=== PATIENT | male | born 1960 | race Caucasian/White ===

== ENCOUNTER 2023-01-04 07:41 | Day surgery (SDC) | payer MEDICAID ==
[~2023-01-04] VITALS: Ht 177.8 cm; Wt 88.5 kg
[2023-01-04] MEDS ORDERED: METOCLOPRAMIDE HCL 10 MG/2 ML VIAL IVP PRN (11:30)
[2023-01-04] MEDS ORDERED: MORPHINE 4 MG INJ. 4 MG/ML VIAL IVP PRN ×3 (11:30)
[2023-01-04] MEDS ORDERED: ONDANSETRON HCL 4 MG/2 ML VIAL IVP PRN (11:30)
[2023-01-04] MEDS ORDERED: GLYCOPYRROLATE 0.2 MG/ML VIAL ONE (12:57)
[2023-01-04] MEDS ORDERED: PROPOFOL 200MG/ 20ML VIAL (DIPRIVAN) IV ONE (12:57)
[2023-01-04] MEDS ORDERED: MINERAL OIL/PETROLATUM,WHITE 3.5 GM EYE OINT. OP ONE (12:57)
[2023-01-04] MEDS ORDERED: DEXAMETHASONE SOD PHOSPHATE 4 MG/ML VIAL ONE (12:57)
[2023-01-04] MEDS ORDERED: fentaNYL CITRATE/PF 100 MCG/2 ML AMP ONE (12:57)
[2023-01-04] MEDS ORDERED: NS IRRIG SOLN 1000 ML IR ONE (12:57)
[2023-01-04] MEDS ORDERED: MIDAZOLAM HCL 5 MG/ML VIAL (VERSED) IV ONE (12:57)
[2023-01-04] MEDS ORDERED: ROCURONIUM BROMIDE 10 MG/ML (ZEMURON) ONE (12:57)
[2023-01-04] MEDS ORDERED: LIDOCAINE 1% 10 MG/ML, 20 ML MDV ONE (12:57)
[2023-01-04] MEDS ORDERED: LIDOCAINE/EPI 1% 1:100000 20 ML VIAL ONE (12:57)
[2023-01-04] MEDS ORDERED: SEVOFLURANE 15 MIN GAS INH ONE (12:57)
[2023-01-04] MEDS ORDERED: OXYMETAZOLINE HCL 0.05% NASAL SPRAY NS ONE (12:57)
[2023-01-04] MEDS ORDERED: LR 1,000 ML IV.SOLN IV ONE (12:57)
[2023-01-04] MEDS ORDERED: ePHEDrine sulfate 50 MG/ML VIAL ONE (12:57)
[2023-01-04] MEDS ORDERED: ONDANSETRON HCL 4 MG/2 ML VIAL ONE (12:57)
[2023-01-04] MEDS ORDERED: EPINEPHrine HCL 1 MG/ML VIAL ONE (12:57)
[2023-01-04] MEDS ORDERED: NS 1000 ML IV.SOLN IV ONE (12:57)
[2023-01-04] MEDS ORDERED: WATER FOR IRRIGATION,STERILE 1,000 ML IRRIG.SOLN IR ONE (12:57)
[2023-01-04] MEDS ORDERED: MUPIROCIN 2% TOPICAL OINTMENT 22 GM ONE (12:57)
[2023-01-04 14:51] VITALS: BP_SYST 140
== END 2023-01-04 13:55 | disposition home or self-care (01) ==
LOC: SDS 07:41 → SMU 07:41 → SDS 13:55
PROVIDERS: ATTEND Otolaryngology
DX: J34.89 Other specified disorders of nose and nasal sinuses (principal); D38.5 Neoplasm of uncertain behavior of other respiratory organs; J31.0 Chronic rhinitis; F17.218 Nicotine dependence, cigarettes, with other nicotine-induced disorders; E78.5 Hyperlipidemia, unspecified; Z79.899 Other long term (current) drug therapy; Z20.822 Contact with and (suspected) exposure to COVID-19
CPT/HCPCS: 31255; 36415; 88304; 88305; 88311; 87426; 30140; 30520; J1100; J0171; J3490; J2001; J2250; J2405; J2704; J3010; J7120; J7030